=== PATIENT | male | born 1945 | race Caucasian/White ===

== ENCOUNTER 2016-08-21 22:13 | Emergency (ER) | payer OTHER ==
[2016-08-21 23:13] VITALS: BP 114/73
== END 2016-08-21 23:13 | disposition home or self-care (01) ==
LOC: ED 22:13
DX: I83.891 Varicose veins of right lower extremity with other complications (principal); Z79.899 Other long term (current) drug therapy
CPT/HCPCS: J2001

== ENCOUNTER 2017-12-01 15:39 | Emergency (ER) | payer OTHER ==
[~2017-12-01] VITALS: Ht 177.8 cm; Wt 68.0 kg
[2017-12-01 15:43] VITALS: BP 121/81; Ht 177.8 cm; Wt 68.0 kg
== END 2017-12-01 17:58 | disposition home or self-care (01) ==
LOC: ED 15:39
DX: F41.9 Anxiety disorder, unspecified (principal); F29 Unspecified psychosis not due to a substance or known physiological condition; G20 Parkinson's disease

== ENCOUNTER 2017-12-05 12:05 | Emergency (ER) | payer OTHER ==
[~2017-12-05] VITALS: Ht 172.7 cm; Wt 70.3 kg
[2017-12-05 12:21] VITALS: Ht 172.7 cm; Wt 70.3 kg
[2017-12-05 14:20] LABS: PLATELET COUNT 263 x10^3mcL (130-400)
[2017-12-05 14:24] LABS: RED CELL DISTRIBUTION WIDTH 14.7 % (11.5-14.5)
[2017-12-05 14:26] LABS: CALCIUM 8.9 mg/dL (8.5-10.1); CARBON DIOXIDE 28.3 mmol/L (21-32); CHLORIDE SERUM 102 mmol/L (98-107); CREATININE SERUM 0.5 mg/dL (0.7-1.3); GLUCOSE SERUM 93 mg/dL (74-106); SODIUM SERUM 138 mmol/L (136-145)
[2017-12-05 14:39] LABS: ALKALINE PHOSPHATASE 59 U/L (46-116); AST/SGOT 14 U/L (15-37); BILIRUBIN TOTAL 0.6 mg/dL (0.20-1.00); TOTAL PROTEIN, SERUM 7.3 g/dL (6.4-8.2)
[2017-12-05 14:40] LABS: microscopic required? NO
[2017-12-05 14:48] LABS: UA SPECIFIC GRAVITY 1.015 (1.005-1.035); urine erythrocyte NEGATIVE (NEGATIVE)
[2017-12-05 15:03] LABS: AMPHETAMINE QUAL UR NONE DETECTED (See below)
[2017-12-05 15:04] LABS: ALT/SGPT 7 U/L (16-63)
[2017-12-05 17:02] VITALS: BP 119/70
[2017-12-07] MEDS ORDERED: AZILECT1 M1 PO (20:35)
[2017-12-07] MEDS ORDERED: TRAZODONE50 M1 PO (20:35)
[2017-12-07] MEDS ORDERED: QUETIAPINE FUMA25 M1 PO (20:35)
[2017-12-07] MEDS ORDERED: CARBIDOPA/LEVOD1 TA2 PO (20:36)
== END 2017-12-05 17:32 | disposition home or self-care (01) ==
LOC: ED 12:05
PROVIDERS: Emergency Medicine
DX: F41.9 Anxiety disorder, unspecified (principal); G20 Parkinson's disease; F29 Unspecified psychosis not due to a substance or known physiological condition; R30.0 Dysuria; R39.15 Urgency of urination
CPT/HCPCS: 36415